=== PATIENT | female | born 1960 | race Caucasian/White ===

== ENCOUNTER → 2016-11-10 | Outpatient (CLI) | payer OTHER ==
[~2016-11-10] MED LIST: ADVAIR 100/501 E1 INH; ASPIRIN81 M1 PO; CLINDAMYCIN HC300 MG PO; COMBIVENT1 ARO IH; GLUCOPHAGE500 MG PO; INDERAL LA60 MG PO; NEURONTIN600 MG PO; NORCO 325 MG-51 TAB PO; PREVACID30 MG PO; RITALIN10 MG; RITALIN10 MG PO; SOMA250 MG PO; TRAMADOL HCL50 MG PO; VALIUM2 MG PO; VICODIN 5/500 505 MG PO; [UNRECOGNIZED DRUG - REMARK]; [UNRECOGNIZED DRUG - REMARK]
[2016-11-10 08:28] LABS: BASO % 0.3 % (0.0-1.0); EOS # 0.2 10*3/uL (0.0-0.4); EOS % 2.6 % (1.0-4.0); HEMATOCRIT 33.1 % (37.0-47.0); HEMOGLOBIN 10.3 g/dl (12.0-16.0); LYMPH # 3.4 10*3/uL (1.3-4.4); LYMPH % 43.6 % (27.0-41.0); MEAN CELL VOLUME 95.4 fl (81.0-99.0); MEAN CORPUSCULAR HGB 29.7 pg (27.0-31.0); MEAN CORPUSCULAR HGB CONC 31.1 g/dl (33.0-37.0); MEAN PLATELET VOLUME 11.4 fl (9.6-12.3); MONO # 0.6 10*3/uL (0.1-1.0); MONO % 7.5 % (3.0-9.0); NEUT # 3.6 10*3/uL (2.3-7.9); NEUT % 45.6 % (47.0-73.0); PLATELET COUNT AUTOMATED 193 10*3/uL (130-400); RED BLOOD COUNT 3.47 10*6/uL (4.10-5.10); RED CELL DISTRI WIDTH 13.3 % (0-14.5); RETICULOCYTE % 1.68 % (0.50-2.50); WHITE BLOOD COUNT 7.8 10*3/uL (4.8-10.8)
[2016-11-10 08:29] LABS: IRF 11.2 % (2.4-13.3); RET-He 33.2 pg (32.1-37.9)
[2016-11-10 08:42] LABS: URINE TP/CRE RATIO 0.2 (<0.21)
[2016-11-10 08:50] LABS: HEMOGLOBIN A1c 5.7 % (4.8-5.6)
[2016-11-10 08:51] LABS: ALBUMIN 3.7 gm/dl (3.1-4.5); BILIRUBIN, TOTAL 0.4 mg/dl (0.2-1.0); MAGNESIUM 1.7 mg/dL (1.5-2.1); PHOSPHOROUS 4.2 mg/dL (2.5-4.9); POTASSIUM 5.9 mmol/L (3.5-5.1); TOTAL PROTEIN 7.3 gm/dL (6.4-8.2)
[2016-11-10 10:39] LABS: VITAMIN D, 25-HYDROXY 23.5 ng/mL (30-100)
[2016-11-10 10:40] LABS: PTH INTACT 56.4 pg/mL (14.0-72.0)
== END | disposition home or self-care (01) ==
LOC: LAB 07:46
PROVIDERS: Internal Medicine Nephrology
DX: I12.9 Hypertensive chronic kidney disease with stage 1 through stage 4 chronic kidney disease, or unspecified chronic kidney disease (principal); E11.22 Type 2 diabetes mellitus with diabetic chronic kidney disease; N18.3 Chronic kidney disease, stage 3 (moderate); E55.9 Vitamin D deficiency, unspecified; D63.1 Anemia in chronic kidney disease; E78.00 Pure hypercholesterolemia, unspecified; M19.90 Unspecified osteoarthritis, unspecified site

== ENCOUNTER → 2016-11-16 | Outpatient (CLI) | payer OTHER ==
[2016-11-16 18:19] LABS: ALBUMIN 4.1 gm/dl (3.1-4.5); PHOSPHOROUS 4.2 mg/dL (2.5-4.9)
[2016-11-16 18:27] LABS: POTASSIUM 6.4 mmol/L (3.5-5.1)
== END | disposition home or self-care (01) ==
LOC: LAB 17:42
PROVIDERS: Family Medicine
DX: E87.5 Hyperkalemia (principal)

== ENCOUNTER → 2016-11-17 | Outpatient (CLI) | payer OTHER ==
[2016-11-17 13:11] LABS: PHOSPHOROUS 4.5 mg/dL (2.5-4.9)
[2016-11-17 13:19] LABS: POTASSIUM 5.3 mmol/L (3.5-5.1)
== END | disposition home or self-care (01) ==
LOC: LAB 10:14
PROVIDERS: Family Medicine
DX: E87.5 Hyperkalemia (principal)

== ENCOUNTER → 2016-11-19 | Outpatient (CLI) | payer OTHER ==
[2016-11-19 09:55] LABS: ALBUMIN 3.8 gm/dl (3.1-4.5); PHOSPHOROUS 3.8 mg/dL (2.5-4.9)
[2016-11-19 09:59] LABS: POTASSIUM 3.8 mmol/L (3.5-5.1)
== END | disposition home or self-care (01) ==
LOC: LAB 08:43
PROVIDERS: Family Medicine
DX: N18.3 Chronic kidney disease, stage 3 (moderate) (principal); E87.5 Hyperkalemia; E11.22 Type 2 diabetes mellitus with diabetic chronic kidney disease

== ENCOUNTER → 2016-11-28 | Outpatient (CLI) | payer OTHER ==
[2016-11-28 10:00] LABS: ALBUMIN 3.6 gm/dl (3.1-4.5); BILIRUBIN, TOTAL 0.3 mg/dl (0.2-1.0); POTASSIUM 4.6 mmol/L (3.5-5.1); TOTAL PROTEIN 7.6 gm/dL (6.4-8.2)
== END | disposition home or self-care (01) ==
LOC: LAB 09:19
PROVIDERS: Family Medicine
DX: M47.817 Spondylosis without myelopathy or radiculopathy, lumbosacral region (principal); E87.0 Hyperosmolality and hypernatremia

== ENCOUNTER → 2017-08-19 | Outpatient (CLI) | payer OTHER ==
[~2017-08-19] MED LIST changes: +ASPIRIN ADULT L81 M2 PO; +BREO ELLIPTA 11 EACH INH; +CARVEDILOL3.125 MG PO; +CYCLOBENZAPRINE10 MG PO; +FEROSUL325 MG PO; +IMITREX50 MG PO; +LEVOTHYROXINE75 MCG PO; +LEXAPRO20 MG PO; +LISINOPRIL10 M1 PO; +NATURE'S BLEND F1 MG PO; +OMEPRAZOLE20 M2 PO; +SIMVASTATIN20 MG PO; +TOPROL XL25 MG PO; +TRAMADOL HCL E100 M1 PO; +VENTOLIN 02.5 MG/3 M INH; +VITAMIN D-32000 UNIT PO; +ZOFRAN 4 MG ED2 TAB PO
== END | disposition home or self-care (01) ==
LOC: RESCLI 00:40
DX: I12.9 Hypertensive chronic kidney disease with stage 1 through stage 4 chronic kidney disease, or unspecified chronic kidney disease (principal); E55.9 Vitamin D deficiency, unspecified; N18.3 Chronic kidney disease, stage 3 (moderate); E78.2 Mixed hyperlipidemia; E03.9 Hypothyroidism, unspecified; E11.22 Type 2 diabetes mellitus with diabetic chronic kidney disease; E11.42 Type 2 diabetes mellitus with diabetic polyneuropathy; K21.9 Gastro-esophageal reflux disease without esophagitis; G43.909 Migraine, unspecified, not intractable, without status migrainosus; J41.1 Mucopurulent chronic bronchitis; M79.7 Fibromyalgia; F33.0 Major depressive disorder, recurrent, mild; M51.36 Other intervertebral disc degeneration, lumbar region; D64.9 Anemia, unspecified; Z87.891 Personal history of nicotine dependence

== ENCOUNTER → 2017-09-23 | Outpatient (CLI) | payer OTHER | END | disposition home or self-care (01) | LOC: RAD 18:01 | DX: G89.29 Other chronic pain (principal); M25.551 Pain in right hip; M25.512 Pain in left shoulder; M25.552 Pain in left hip; M25.511 Pain in right shoulder; Z91.81 History of falling ==

== ENCOUNTER 2017-12-01 12:57 | Emergency (ER) | payer OTHER ==
[~2017-12-01] VITALS: Ht 149.8 cm; Wt 59.0 kg
--- NOTE | ~2017-12-01 | EKG ---
[place], [place] ELECTROCARDIOGRAM REPORT NAME: JESSE LANDIN UNIT #: [id number] ROOM: DOCTOR: EPIPHANY DRAFT REPORT BIRTHDATE: [birth year] [facility] Test Date: 2017-12-01 Test Time: 17:42:00 Pat Name: JESSE LANDIN Department: Room: Gender: F [employer]: : 1960 Requested By: BALWINDER MG Order Number: [id number] Reading MD: Kun Mcarthur MD Measurements Intervals [place] Rate: 93 P: 69 WA: 131 QRS: 48 QRSD: 81 T: 34 QT: 311 QTc: 387 Interpretive Statements Sinus rhythm Low voltage, extremity leads Baseline wander in lead(s) V1,V2 Electronically Signed On 12-02-2017 19:03:11 PDT by Kun Mcarthur MD CM:EKGRPT:ELECTROCARDIOGRAM REPORT 1903 BALWINDER MG EPIPHANY DRAFT REPORT BALWINDER MG
[2017-12-01 17:38] LABS: BASO # 0.1 10*3/uL (0.0-0.1); BASO % 0.3 % (0.0-1.0); EOS # 0.1 10*3/uL (0.0-0.4); EOS % 0.8 % (1.0-4.0); HEMATOCRIT 35.9 % (37.0-47.0); HEMOGLOBIN 11.1 g/dl (12.0-16.0); LYMPH # 3.9 10*3/uL (1.3-4.4); LYMPH % 24.9 % (27.0-41.0); MEAN CELL VOLUME 96.5 fl (81.0-99.0); MEAN CORPUSCULAR HGB 29.8 pg (27.0-31.0); MEAN CORPUSCULAR HGB CONC 30.9 g/dl (33.0-37.0); MONO # 0.8 10*3/uL (0.1-1.0); MONO % 5.1 % (3.0-9.0); NEUT # 10.6 10*3/uL (2.3-7.9); NEUT % 68.4 % (47.0-73.0); PLATELET COUNT AUTOMATED 224 10*3/uL (130-400); RED BLOOD COUNT 3.72 10*6/uL (4.10-5.10); RED CELL DISTRI WIDTH 14.6 % (0-14.5); WHITE BLOOD COUNT 15.5 10*3/uL (4.8-10.8)
[2017-12-01 17:44] VITALS: BP 132/70
[2017-12-01 17:54] LABS: ALBUMIN 4.1 gm/dl (3.1-4.5); CREATININE 1.9 mg/dL (0.55-1.02); POTASSIUM 5.2 mmol/L (3.5-5.1); TOTAL PROTEIN 7.3 gm/dL (6.4-8.2)
== END 2017-12-01 18:10 | disposition short-term general hospital (02) ==
LOC: ED 12:57
PROVIDERS: Nurse Practitioner Family
DX: S72.012A Unspecified intracapsular fracture of left femur, initial encounter for closed fracture (principal); S80.212A Abrasion, left knee, initial encounter; Z98.890 Other specified postprocedural states; Z90.49 Acquired absence of other specified parts of digestive tract; Z79.899 Other long term (current) drug therapy; Z88.0 Allergy status to penicillin; Z88.2 Allergy status to sulfonamides; Z88.8 Allergy status to other drugs, medicaments and biological substances; W19.XXXA Unspecified fall, initial encounter; Y93.89 Activity, other specified; Y92.89 Other specified places as the place of occurrence of the external cause; Y99.9 Unspecified external cause status

== ENCOUNTER → 2018-09-05 | Outpatient (CLI) | payer OTHER | END | disposition home or self-care (01) | LOC: ORTHO 00:36 | DX: M16.12 Unilateral primary osteoarthritis, left hip (principal); M25.462 Effusion, left knee; Z91.81 History of falling ==

== ENCOUNTER → 2018-12-19 | Outpatient (CLI) | payer OTHER | END | disposition home or self-care (01) | LOC: ORTHO 00:31 | DX: S82.141D Displaced bicondylar fracture of right tibia, subsequent encounter for closed fracture with routine healing (principal); M25.461 Effusion, right knee; X58.XXXD Exposure to other specified factors, subsequent encounter ==

== ENCOUNTER → 2021-01-28 | Outpatient (CLI) | payer OTHER ==
[2021-01-28 13:37] LABS: BASO # 0.1 10*3/uL (0.0-0.1); BASO % 0.6 % (0.0-1.0); EOS # 0.4 10*3/uL (0.0-0.4); EOS % 4.5 % (1.0-4.0); HEMATOCRIT 37.6 % (37.0-47.0); LYMPH # 3.8 10*3/uL (1.3-4.4); LYMPH % 41.8 % (27.0-41.0); MEAN CELL VOLUME 98.7 fl (81.0-99.0); MEAN CORPUSCULAR HGB 30.7 pg (27.0-31.0); MEAN CORPUSCULAR HGB CONC 31.1 g/dl (33.0-37.0); MEAN PLATELET VOLUME 10.4 fl (9.6-12.3); MONO # 0.7 10*3/uL (0.1-1.0); MONO % 7.9 % (3.0-9.0); NEUT # 4.1 10*3/uL (2.3-7.9); NEUT % 44.8 % (47.0-73.0); PLATELET COUNT AUTOMATED 285 10*3/uL (130-400); RED BLOOD COUNT 3.81 10*6/uL (4.10-5.10); RED CELL DISTRI WIDTH 13.9 % (0-14.5); WHITE BLOOD COUNT 9.1 10*3/uL (4.8-10.8)
[2021-01-28 13:54] LABS: CREATININE 1.38 mg/dL (0.55-1.02); FREE T4 0.8 ng/dl (0.76-1.46); TOTAL PROTEIN 7.8 gm/dL (6.4-8.2)
[2021-01-28 13:59] LABS: THYROID STIM HORMONE (HS) 0.639 uIU/ml (0.358-4.75)
[2021-01-28 14:10] LABS: POTASSIUM 6.1 mmol/L (3.5-5.1)
== END | disposition home or self-care (01) ==
LOC: LAB 13:13
PROVIDERS: ATTEND Internal Medicine
DX: Z00.00 Encounter for general adult medical examination without abnormal findings (principal); I10 Essential (primary) hypertension; E11.9 Type 2 diabetes mellitus without complications; E78.2 Mixed hyperlipidemia; E03.9 Hypothyroidism, unspecified; E55.9 Vitamin D deficiency, unspecified